=== PATIENT | female | born 1945 | race Caucasian/White ===

== ENCOUNTER 2018-02-16 12:19 | Observation (INO) ==
--- NOTE | 2018-02-16 12:51 | ED ---
HPI General Chief Complaint: Chest Pain Stated Complaint: Medical Time Seen by Provider: 02/16/18 12:32 Source: patient and family Mode of arrival: ambulatory Limitations: no limitations History of Present Illness HPI narrative: The patient is a 72-year-old female with breast cancer and right lumpectomy fibromyalgia and permanent pacemaker presenting with complaint of chest tightness and associated shortness of breath. She stated that she has been having several episodes in the past 2 days and today she was dusting at home and became very short of breath some lorazepam without any relief of her symptoms. MD complaint: Reports chest pain STEMI Alert: No Onset (ago): day(s) (2) Duration: intermittent Onset: during rest and during exertion Pain location: Reports epigastric Severity: moderate Severity scale (1-10): 6 Quality: Reports tightness Pain radiation: Reports none Relieving factors: nothing Exacerbating factors: exertion Context: Denies recent illness, recent surgery, recent immobilization, recent travel, trauma/injury, new medications and history of DVT/PE Associated symptoms: Reports dyspnea; Denies nausea, vomiting, diaphoresis, sense of impending doom, syncope, palpitations, fever, cough and leg swelling Treatments prior to arrival chest pain: Reports none Related Data Home Medications Medication Instructions Recorded Confirmed alprazolam 0.25 mg PO DAILY PRN 02/16/18 02/16/18 aspirin [Aspir-81] 81 mg PO DAILY 02/16/18 02/16/18 gabapentin 300 mg PO DAILY 02/16/18 02/16/18 metoprolol succinate 50 mg PO DAILY 02/16/18 02/16/18 nitrofurantoin macrocrystal 100 mg PO DAILY 02/16/18 02/16/18 Allergies Allergy/AdvReac Type Severity Reaction Status Date / Time lovastatin Allergy Severe "EXTREME Unverified 11/16/16 21:11 MUSCLE PAIN" diphenhydramine AdvReac Severe "MAKES ME Unverified 11/16/16 21:11 HYPER" STATINS Allergy Intermediate Muscle Pain Uncoded 02/16/18 12:25 Review of Systems ROS: all other systems reviewed are negative Respiratory Denies chest congestion, Denies cough, Denies dyspnea, Reports dyspnea on exertion, Denies stridor and Denies wheezing PMFSH History History Provided By: Patient and Family Member Medical History Medical History Breast cancer (Acute) Pacemaker (Acute) Social History Social History Smoking Status: Former smoker How Often Do You Have a Drink Containing Alcohol: Monthly or less Recent Travel in [facility] within the Last 8 Weeks: No Recent Out of Country Travel within the Last 8 Weeks: No Exam Narrative Exam Narrative: GENERAL: Alert and oriented in no distress. Well-nourished. SKIN: Focused skin assessment warm/dry. HEAD: Atraumatic. Normocephalic. EYES: Pupils equal and round. No scleral icterus. No injection or drainage. ENT: No nasal bleeding or discharge. Mucous membranes pink and moist. NECK: Trachea midline. No JVD. CARDIOVASCULAR: Regular rate and rhythm. No murmur appreciated. RESPIRATORY: No accessory muscle use. Clear to auscultation. Breath sounds equal bilaterally. GASTROINTESTINAL: Abdomen soft, non-tender, nondistended. Hepatic and splenic margins not palpable. MUSCULOSKELETAL: No obvious deformities. No clubbing. No cyanosis. No edema. NEUROLOGICAL: Awake and alert. No obvious cranial nerve deficits. Motor grossly within normal limits. Normal speech. PSYCHIATRIC: Appropriate mood and affect; insight and judgment normal. Course Reevaluation(s) Reevaluation #1: She stated that she felt better with the nitro. Her pain is returning at this time so we will going to repeat the dose. Time: 14:19 Initial Documented Vital Signs Temperature 97.5 F L 02/16/18 12:21 Pulse Rate 67 02/16/18 12:21 Respiratory Rate 18 02/16/18 12:21 Blood Pressure 175/71 H 02/16/18 12:21 Pulse Oximetry 96 02/16/18 12:21 Last Documented Vital Signs Temperature 97.5 F L 02/16/18 12:21 Pulse Rate 86 02/16/18 16:42 Respiratory Rate 17 02/16/18 16:42 Blood Pressure 142/71 H 02/16/18 16:42 Pulse Oximetry 100 02/16/18 16:42 Medical Decision Making MDM Narrative Medical decision making narrative: Initial cardiac workup has been unremarkable. Blood pressure improved with nitro. Hemodynamically stable alert and oriented. CT Angio was obtained due to a recent hip surgery and was negative for pulmonary emboli or intrathoracic process. initial cardiac work up unremarkable. Chest Pain did improve with Nitro SL. We will place the patient in the chest pain unit for serial cardiac enzymes. Medical Screen Exam Complete: Yes Emergency Medical Condition: Yes Lab Data Lab results reviewed: Yes I reviewed the patient's lab results. Result diagrams: 02/16/18 13:00 02/16/18 13:00 Lab Results 02/16/18 02/16/18 02/16/18 Range/Units 13:00 13:00 13:00 WBC 5.8 (4.0-11.0) th/mm3 RBC 4.86 (4.00-5.30) mil/mm3 Hgb 13.9 (11.6-15.3) gm/dL Hct 41.9 (35.0-46.0) % MCV 86.3 (80.0-100.0) fL MCH 28.7 (27.0-34.0) pg MCHC 33.3 (32.0-36.0) % RDW 13.7 (11.6-17.2) % Plt Count 217 (150-450) th/mm3 MPV 9.0 (7.0-11.0) fL Neut % (Auto) 60.6 (16.0-70.0) % Lymph % (Auto) 27.9 (9.0-44.0) % Ble[place] % (Auto) 7.7 (0.0-8.0) % Eos % (Auto) 3.2 (0.0-4.0) % Baso % (Auto) 0.6 (0.0-2.0) % Neut # (Auto) 3.5 (1.8-7.7) th/mm3 Lymph # (Auto) 1.6 (1.0-4.8) th/mm3 [place] # (Auto) 0.4 (0.0-0.9) th/mm3 Eos # (Auto) 0.2 (0.0-0.4) th/mm3 Baso # (Auto) 0.0 (0.0-0.2) th/mm3 WBC Differential . Differential Comment Auto diff final PT 9.7 L (9.8-11.6) sec INR 1.0 Ratio APTT 27.2 (23.4-31.7) sec Sodium (136-145) meq/L Potassium (3.5-5.1) meq/L Chloride (98-107) meq/L Carbon Dioxide (21.0-32.0) meq/L Anion Gap (5-15) meq/L BUN (7-18) mg/dL Creatinine (0.50-1.00) mg/dL Estimated GFR (>89) mL/min Random Glucose (74-106) mg/dL Calcium (8.5-10.1) mg/dL Total Bilirubin (0.2-1.0) mg/dL AST (15-37) U/L ALT (10-53) U/L Alkaline Phosphatase (45-117) U/L Total Creatine Kinase (26-192) U/L Troponin I (0.02-0.05) ng/mL B-Natriuretic Peptide 117 H (0-100) pg/mL Total Protein (6.4-8.2) g/dL Albumin (3.4-5.0) g/dL 02/16/18 Range/Units 13:00 WBC (4.0-11.0) th/mm3 RBC (4.00-5.30) mil/mm3 Hgb (11.6-15.3) gm/dL Hct (35.0-46.0) % MCV (80.0-100.0) fL MCH (27.0-34.0) pg MCHC (32.0-36.0) % RDW (11.6-17.2) % Plt Count (150-450) th/mm3 MPV (7.0-11.0) fL Neut % (Auto) (16.0-70.0) % Lymph % (Auto) (9.0-44.0) % [place] % (Auto) (0.0-8.0) % Eos % (Auto) (0.0-4.0) % Baso % (Auto) (0.0-2.0) % Neut # (Auto) (1.8-7.7) th/mm3 Lymph # (Auto) (1.0-4.8) th/mm3 [place] # (Auto) (0.0-0.9) th/mm3 Eos # (Auto) (0.0-0.4) th/mm3 Baso # (Auto) (0.0-0.2) th/mm3 WBC Differential Differential Comment PT (9.8-11.6) sec INR Ratio APTT (23.4-31.7) sec Sodium 144 (136-145) meq/L Potassium 3.9 (3.5-5.1) meq/L Chloride 111 H (98-107) meq/L Carbon Dioxide 25.8 (21.0-32.0) meq/L Anion Gap 7 (5-15) meq/L BUN 19 H (7-18) mg/dL Creatinine 0.82 (0.50-1.00) mg/dL Estimated GFR 68 L (>89) mL/min Random Glucose 89 (74-106) mg/dL Calcium 8.4 L (8.5-10.1) mg/dL Total Bilirubin 0.3 (0.2-1.0) mg/dL AST 15 (15-37) U/L ALT 15 (10-53) U/L Alkaline Phosphatase 75 (45-117) U/L Total Creatine Kinase 91 (26-192) U/L Troponin I Less than 0.02 L (0.02-0.05) ng/mL B-Natriuretic Peptide (0-100) pg/mL Total Protein 7.3 (6.4-8.2) g/dL Albumin 3.5 (3.4-5.0) g/dL Imaging Data Radiologist's impression: Chest CTA 02/16/18 12:46 CONCLUSION: No evidence of pulmonary embolus. Chest X-Ray 02/16/18 12:47 CONCLUSION: No acute cardiopulmonary disease. ECG Data EKG Prior to Arrival: No Attestation: I personally reviewed and interpreted this ECG as follows: Interpretation: Sinus rhythm 63 bpm normal axis nonspecific ST-T wave abnormalities. CO and QTc intervals within normal limits. No signs of acute ischemia. Discharge Plan Discharge Disposition Patient Disposition: 30 Still Patient Discharge Condition Condition: Good Discharge Details Diagnosis: Atypical chest pain Physicians Team ED Provider: Arturo Mccarty Primary Care Provider: Johnny Rico Attending Provider: Ezio Ro Status ED Status: Left Department Discharge Information Discharge Date/Time: 02/16/18 16:45
[2018-02-16 13:17] LABS: Baso % (Auto) 0.6 % (0.0-2.0); Eos # (Auto) 0.2 th/mm3 (0.0-0.4); Eos % (Auto) 3.2 % (0.0-4.0); Hematocrit 41.9 % (35.0-46.0); Hemoglobin 13.9 gm/dL (11.6-15.3); Lymph # (Auto) 1.6 th/mm3 (1.0-4.8); Lymph % (Auto) 27.9 % (9.0-44.0); Mean Corpuscular HGB Conc 33.3 % (32.0-36.0); Mean Corpuscular Hemoglobin 28.7 pg (27.0-34.0); Mean Corpuscular Volume 86.3 fL (80.0-100.0); Mono # (Auto) 0.4 th/mm3 (0.0-0.9); Mono % (Auto) 7.7 % (0.0-8.0); Neut # (Auto) 3.5 th/mm3 (1.8-7.7); Neut % (Auto) 60.6 % (16.0-70.0); Platelet Count 217 th/mm3 (150-450); Red Blood Count 4.86 mil/mm3 (4.00-5.30); Red Cell Distribution Width 13.7 % (11.6-17.2); White Blood Count 5.8 th/mm3 (4.0-11.0)
[2018-02-16 13:27] LABS: Activated Partial Thrombo Time 27.2 sec (23.4-31.7); Prothrombin Time 9.7 sec (9.8-11.6)
[2018-02-16 13:35] LABS: Alanine Aminotransferase 15 U/L (10-53); Albumin 3.5 g/dL (3.4-5.0); Anion Gap 7 meq/L (5-15); Aspartate Aminotransferase 15 U/L (15-37); Blood Urea Nitrogen 19 mg/dL (7-18); Calcium 8.4 mg/dL (8.5-10.1); Carbon Dioxide 25.8 meq/L (21.0-32.0); Chloride 111 meq/L (98-107); Glomerular Filtration Rate 68 mL/min (>89); Glucose,Random 89 mg/dL (74-106); Potassium 3.9 meq/L (3.5-5.1); Sodium 144 meq/L (136-145)
--- NOTE | 2018-02-16 13:38 | XR ---
EXAM DATE: 02/16/2018 1:31 PM EST AGE/SEX: 72 years / Female INDICATIONS: Chest pain and shortness of breath. CLINICAL DATA: This is the patient's initial encounter. Patient reports that signs and symptoms have been present for 1 day and indicates a pain score of 5/10. MEDICAL/SURGICAL HISTORY: Carcinoma, breast. Pacemaker. Lumpectomy. COMPARISON: [facility], CHEST SINGLE AP, 12/05/2012. . FINDINGS: A single AP view of the chest demonstrates the lungs to be symmetrically aerated without evidence of mass, infiltrate or effusion. The cardiomediastinal contours are unremarkable. Osseous structures a re intact. Left subclavian dual lead pacemaker has its tips in the right atrium and right ventricle CONCLUSION: No acute cardiopulmonary disease. Electronically signed by: Shlomo Umanzor MD 02/16/2018 1:37 PM EST
[2018-02-16 13:39] LABS: Alkaline Phosphatase 75 U/L (45-117); Creatine Kinase 91 U/L (26-192); Total Protein 7.3 g/dL (6.4-8.2)
--- NOTE | 2018-02-16 14:56 | CT ---
EXAM DATE: 02/16/2018 2:45 PM EST AGE/SEX: 72 years / Female INDICATIONS: Shortness of breath, and chest tightness. CLINICAL DATA: This is the patient's initial encounter. Patient reports that signs and symptoms have been present for 1 day and indicates a pain score of 7/10. MEDICAL/SURGICAL HISTORY: Carcinoma, breast. Pacemaker. RADIATION DOSE: 9.76 CTDI (mGy) COMPARISON: [facility], CTA CHEST W 3D RECON, 12/05/2012. . TECHNIQUE: Volumetric scanning was performed using a multi-row detector CT scanner during bolus infu adrianne of 75 ml Omnipaque 350 (iohexol) nonionic water-soluble contrast as a single exam dose. The karen a was post processed with a variety of visualization algorithms including full volume maximum intensi ty projection and sliding thin slab reformation. Using automated exposure control and adjustment of the mA and/or kV according to patient size, radiation dose was kept as low as reasonably achievable t o obtain optimal diagnostic quality images. DICOM format image data is available electronically for review and comparison. FINDINGS: Pulmonary Arteries: No filling defects in the pulmonary arteries to suggest pulmonary embolus. Lun mm nodular density in the left upper lobe unchanged from the prior study of 2012. Lungs are otherwise clear. Effusion: None. Mediastinum: No enlarged lymph nodes. Aortic diameter within normal limits. Moderate-sized hiatal he rnia. Other: The axilla is unremarkable. CONCLUSION: No evidence of pulmonary embolus. Electronically signed by: Erwin Randle MD 02/16/2018 2:55 PM EST
--- NOTE | 2018-02-16 16:51 | P.HPCA ---
History of Present Illness Primary Care Physician: Johnny Rico MD Chief Complaint: Chest pain History of Present Illness: This is a 72-year-old female with history of hypertension, hyperlipidemia, sick sinus syndrome with pacemaker, fibromyalgia that presents to ED with complaint of chest pressure. Patient states that she usually will have chest discomfort of some type III times a week and has had so for years. However the discomfort that began last evening is different. She states is a central chest pressure. Is been occurring at rest for the most part until this morning. It would last a few minutes. This morning it occurred when she went to walk fast to get her phone was ringing. At that time she became short of breath as well. Discomfort did not radiate. She had no nausea or diaphoresis. Currently feeling okay. States she has had cardiac workups before. Follows Dr. Long and states that she had a nuclear stress test within the last 2-3 months at their [facility] office. She states that she was told that it was okay. Medical history of hypertension, hyperlipidemia, sick sinus syndrome with pacemaker, fibromyalgia. Denies known CAD and diabetes. There is family history of CAD. She is a non-smoker. - Diagnosis (1) Chest pain (2) Hypertension (3) Hyperlipidemia (4) Sick sinus syndrome (5) Pacemaker (6) Fibromyalgia Review of Systems General: Patient denies fevers, chills, and recent travel. HEENT: Patient denies headache, sore throat, difficulty swallowing. Cardiovascular: Has the chest discomfort as mentioned above. Denies sensation of heart beating rapidly or irregularly. No syncope. Denies diaphoresis. Respiratory: She was short of breath. Denies inspirational chest discomfort. Denies coughing wheezing or hemoptysis. GI: Patient denies nausea, vomiting, diarrhea, abdominal pain, bloody stools. Musculoskeletal: Patient denies joint pain or edema. Denies calf pain or edema. Neurovascular: Patient denies numbness, tingling, weakness in extremities. Denies headache. Endocrine: Denies polyuria and polydipsia. Hematologic: Denies easy bruising. Skin: Denies rash or itching. PMFSH - History History Provided By: Patient, Family Member - Medical History Medical History: Medical History (Last Reviewed 02/16/18 @ 12:51 by Arturo Mccarty DO) Breast cancer Pacemaker - Tobacco History Smoking Status: Former smoker - Alcohol History How Often Do You Have a Drink Containing Alcohol: Monthly or less - Travel History Recent Travel in the [place] Within the Last 8 Weeks: No Recent Travel Out of the Country Within the Last 8 Weeks: No - Immunization History Tetanus Immunization: <5 Years Medications and Allergies Active Medications: Active Medications Nitroglycerin (Nitrostat Sl) 0.4 mg SL Q5M PRN PRN Reason: CHEST PAIN Sodium Chloride (Ns Flush) 2 ml IV.FLUSH UNSCH PRN PRN Reason: FLUSH AFTER USING IV ACCESS Sodium Chloride (Ns Flush) 2 ml IV.FLUSH BID NIC Sodium Chloride (Ns Flush) 2 ml IV.FLUSH PRN PRN PRN Reason: FLUSH AFTER USING IV ACCESS Allergies Allergy/AdvReac Type Severity Reaction Status Date / Time lovastatin Allergy Severe "EXTREME Unverified 11/16/16 21:11 MUSCLE PAIN" diphenhydramine AdvReac Severe "MAKES ME Unverified 11/16/16 21:11 HYPER" STATINS Allergy Intermediate Muscle Pain Uncoded 02/16/18 12:25 Exam Vital signs: Vital Signs 02/16/18 12:21 02/16/18 12:47 02/16/18 12:48 Temperature 97.5 F L Pulse Rate 67 63 Respiratory Rate 18 17 Blood Pressure 175/71 H 172/81 H Pulse Oximetry 96 100 100 02/16/18 14:58 Temperature Pulse Rate 61 Respiratory Rate 17 Blood Pressure 153/73 H Pulse Oximetry 100 Intake & Output 02/15/18 02/16/18 02/16/18 18:59 06:59 18:59 Weight 74.843 kg Narrative: GENERAL: This is a well-nourished, well-developed patient, in no apparent distress. Patient speaks in clear complete sentences. Patient is pleasant. HEENT: Head is atraumatic and normocephalic. Neck is supple without lymphadenopathy and trachea is midline. No JVD or carotid bruits. CARDIOVASCULAR: Regular rate and rhythm without murmurs, gallops, or rubs. RESPIRATORY: Clear to auscultation. Breath sounds equal bilaterally. No wheezes , rales, or rhonchi. Chest wall is tender reproducing the discomfort that she has been getting in the past but not the discomfort that has been intermittent since last evening. No use of accessory muscles. GASTROINTESTINAL: Abdomen is nontender, nondistended. Abdomen soft. No obvious pulsatile mass or bruit. No CVA tenderness. Strong femoral pulses bilaterally. Normal bowel sounds in all quadrants. MUSCULOSKELETAL: Patient is moving upper and lower extremities freely. No calf tenderness or edema, no Homans sign. Strong pulses in upper and lower extremities. NEUROLOGICAL: Patient is alert and oriented. Cranial nerves 2-12 are grossly intact. No focal deficits and speech is clear. SKIN: No rash and turgor is normal. Results 02/16/18 13:00 02/16/18 13:00 Cardiac Enzymes 02/16/18 02/16/18 Range/Units 13:00 13:00 AST 15 (15-37) U/L Troponin I Less than 0.02 L (0.02-0.05) ng/mL B-Natriuretic Peptide 117 H (0-100) pg/mL Coagulation 02/16/18 02/16/18 Range/Units 13:00 13:00 PT 9.7 L (9.8-11.6) sec APTT 27.2 (23.4-31.7) sec B-Natriuretic Peptide 117 H (0-100) pg/mL CBC 02/16/18 Range/Units 13:00 WBC 5.8 (4.0-11.0) th/mm3 RBC 4.86 (4.00-5.30) mil/mm3 Hgb 13.9 (11.6-15.3) gm/dL Hct 41.9 (35.0-46.0) % Plt Count 217 (150-450) th/mm3 Neut # (Auto) 3.5 (1.8-7.7) th/mm3 Lymph # (Auto) 1.6 (1.0-4.8) th/mm3 [place] # (Auto) 0.4 (0.0-0.9) th/mm3 Eos # (Auto) 0.2 (0.0-0.4) th/mm3 Baso # (Auto) 0.0 (0.0-0.2) th/mm3 Comprehensive Metabolic Panel 02/16/18 Range/Units 13:00 Sodium 144 (136-145) meq/L Potassium 3.9 (3.5-5.1) meq/L Chloride 111 H (98-107) meq/L Carbon Dioxide 25.8 (21.0-32.0) meq/L BUN 19 H (7-18) mg/dL Creatinine 0.82 (0.50-1.00) mg/dL Calcium 8.4 L (8.5-10.1) mg/dL AST 15 (15-37) U/L ALT 15 (10-53) U/L Alkaline Phosphatase 75 (45-117) U/L Total Protein 7.3 (6.4-8.2) g/dL Albumin 3.5 (3.4-5.0) g/dL Intake and Output 02/16/18 02/16/18 02/16/18 06:59 14:59 22:59 Other: Weight 74.843 kg Patient Weight 02/17/18 06:59 Weight 74.843 kg - Imaging and Cardiology Imaging: Impressions Chest CTA 02/16/18 12:46 CONCLUSION: No evidence of pulmonary embolus. Chest X-Ray 02/16/18 12:47 CONCLUSION: No acute cardiopulmonary disease. EKG interpretations - EKG EKG shows: sinus rhythm (Initial EKG is sinus rhythm without significant ST segment depressions or elevations.) Caprini VTE Risk Assessment Caprini VTE Risk Assessment: Moderate/High Risk (score >= 2) Caprini Risk Assessment Model: Point Value = 1 Point Value = 2 Point Value = 3 Point Value = 5 Age 41-60 Minor surgery BMI > 25 kg/m2 Swollen legs Varicose veins or History of unexplained or recurrent spontaneous Oral contraceptives or hormone replacement Sepsis (< 1 month) Serious lung disease, including pneumonia (< 1 month) Abnormal pulmonary function Acute myocardial infarction Congestive heart failure (< 1 month) History of inflammatory bowel disease Medical patient at bed rest Age 61-74 Arthroscopic surgery Major open surgery (> 45 min) Laparoscopic surgery (> 45 min) Malignancy Confined to bed (> 72 hours) Immobilizing plaster cast Central venous access Age >= 75 History of VTE Family history of VTE Factor V Leiden Prothrombin [id number] Lupus anticoagulant Anticardiolipin antibodies Elevated serum homocysteine Heparin-induced thrombocytopenia Other congenital or acquired thrombophilia Stroke (< 1 month) Elective arthroplasty Hip, pelvis, or leg fracture Acute spinal cord injury (< 1 month) Prophylaxis Regimen: Total Risk Factor Score Risk Level Prophylaxis Regimen 0-1 Low Early ambulation 2 Moderate Order ONE of the following: *Sequential Compression Device (SCD) *Heparin 5000 units SQ BID 3-4 Higher Order ONE of the following medications: *Heparin 5000 units SQ TID *Enoxaparin/Lovenox 40 mg SQ daily (WT < 150 kg, CrCl > 30 mL/min) *Enoxaparin/Lovenox 30 mg SQ daily (WT < 150 kg, CrCl > 10-29 mL/min) *Enoxaparin/Lovenox 30 mg SQ BID (WT < 150 kg, CrCl > 30 mL/min) AND/OR *Sequential Compression Device (SCD) 5 or more Highest Order ONE of the following medications: *Heparin 5000 units SQ TID (Preferred with Epidurals) *Enoxaparin/Lovenox 40 mg SQ daily (WT < 150 kg, CrCl > 30 mL/min) *Enoxaparin/Lovenox 30 mg SQ daily (WT < 150 kg, CrCl > 10-29 mL/min) *Enoxaparin/Lovenox 30 mg SQ BID (WT < 150 kg, CrCl > 30 mL/min) AND *Sequential Compression Device (SCD) Assessment and Plan - Assessment (1) Chest pain Code(s): R07.9 - Chest pain, unspecified Status: Acute (2) Hypertension Code(s): I10 - Essential (primary) hypertension Status: Acute (3) Hyperlipidemia Code(s): E78.5 - Hyperlipidemia, unspecified Status: Acute (4) Sick sinus syndrome Code(s): I49.5 - Sick sinus syndrome Status: Acute (5) Pacemaker Code(s): Z95.0 - Presence of cardiac pacemaker Status: Acute (6) Fibromyalgia Code(s): M79.7 - Fibromyalgia Status: Acute - Plan * Chest pain: Patient will continue to have serial cardiac enzymes and EKGs for ruling out purposes. She will be seen by Dr. Ro of cardiology in the chest pain center in the morning. I discussed this patient with her manager of employee relations and is out of the office to confirm stress testing but believes she probably did have a recently and was okay. Suggest letting her rule out and reevaluate patient in the morning and discussed with him in the morning. Further plan pending evaluation by Dr. Ro in the morning and conversation that they will then have with Dr. Long. * Hypertension: Continue medication. * Hyperlipidemia: Continue medication. * History of sick sinus syndrome: Patient has pacemaker. Continue follow-up with her manager of employee relations. * Fibromyalgia: Continue medication. Patient is stable at this time. She is agreeable to this plan.
[2018-02-16] MEDS ORDERED: Acetaminophen 500 MG Tablet PO PRN (16:52)
[2018-02-16] MEDS ORDERED: Non-Formulary Drug (Nitrofurantoin Macrocrystal [Nitrofurantoin Macrocrystal] 100 MG) PO SCH (18:00)
[2018-02-16 18:17] LABS: Creatine Kinase 79 U/L (26-192)
[2018-02-16] MEDS ORDERED: ALPRAZolam 0.25 MG Tablet PO ONE (21:00)
[2018-02-16 21:20] LABS: Creatine Kinase 74 U/L (26-192)
[2018-02-17 08:20] VITALS: BP 134/67; PULSE 64; RESP 20; TEMP 98.3; O2SAT 95
--- NOTE | 2018-02-17 08:33 | P.PNCA ---
Medications and Allergies Active Medications: Active Medications Acetaminophen (Tylenol) 500 mg PO Q6H PRN PRN Reason: pain scale 1-5 Hydrocodone Bitart/Acetaminophen ([place] 7.5/325) 1 tab PO Q6H PRN PRN Reason: pain scale 6-10 Aspirin (Aspirin) 325 mg PO DAILY [facility] Clonidine HCl (Catapres) 0.1 mg PO Q6H PRN PRN Reason: SBP >165 OR DBP > 110 Gabapentin (Neurontin) 300 mg PO DAILY [facility] Metoprolol Succinate (Toprol Xl) 50 mg PO DAILY [facility] Last Admin: 02/16/18 18:41 Dose: 50 mg Nitrofurantoin Macrocrystals (Macrobid) 100 mg PO DAILY [facility] Nitroglycerin (Nitrostat Sl) 0.4 mg SL Q5M PRN PRN Reason: CHEST PAIN Ondansetron HCl (Zofran Inj) 4 mg IV.PUSH Q6H PRN PRN Reason: NAUSEA OR VOMITING Sodium Chloride (Ns Flush) 2 ml IV.FLUSH UNSCH PRN PRN Reason: FLUSH AFTER USING IV ACCESS Sodium Chloride (Ns Flush) 2 ml IV.FLUSH BID [facility] Last Admin: 02/16/18 21:03 Dose: 2 ml Sodium Chloride (Ns Flush) 2 ml IV.FLUSH PRN PRN PRN Reason: FLUSH AFTER USING IV ACCESS Allergies Allergy/AdvReac Type Severity Reaction Status Date / Time lovastatin Allergy Severe "EXTREME Verified 02/16/18 23:59 MUSCLE PAIN" diphenhydramine AdvReac Severe "MAKES ME Verified 02/16/18 23:59 HYPER" STATINS Allergy Severe Muscle Pain Uncoded 02/16/18 23:59 Home Medications Medication Instructions Recorded Confirmed Type alprazolam 0.25 mg PO DAILY PRN 02/16/18 02/16/18 History aspirin [Aspir-81] 81 mg PO DAILY 02/16/18 02/16/18 History gabapentin 300 mg PO DAILY 02/16/18 02/16/18 History metoprolol succinate 50 mg PO DAILY 02/16/18 02/16/18 History nitrofurantoin macrocrystal 100 mg PO DAILY 02/16/18 02/16/18 History Physical Exam Vital signs: Vital Signs 02/16/18 12:21 02/16/18 12:47 02/16/18 12:48 Temperature 97.5 F L Pulse Rate 67 63 Respiratory Rate 18 17 Blood Pressure 175/71 H 172/81 H Pulse Oximetry 96 100 100 02/16/18 14:58 02/16/18 16:42 02/16/18 17:55 Temperature 97.7 F Pulse Rate 61 86 60 Respiratory Rate 17 17 16 Blood Pressure 153/73 H 142/71 H 151/75 H Pulse Oximetry 100 100 95 02/16/18 19:36 02/16/18 20:00 02/16/18 23:57 Temperature 98.4 F 97.4 F L Pulse Rate 68 71 62 Respiratory Rate 17 14 Blood Pressure 148/72 H 136/74 Pulse Oximetry 96 95 02/17/18 04:00 02/17/18 08:18 Temperature 98.1 F 98.3 F Pulse Rate 61 64 Respiratory Rate 17 20 Blood Pressure 151/74 H 134/67 Pulse Oximetry 93 L 95 Intake & Output 02/16/18 02/17/18 02/17/18 18:59 06:59 18:59 Intake Total 0 / 0 Balance 0 / 0 Weight 74.843 kg Intake: Oral 0 / 0 Other: # Voids 3 Results 02/16/18 13:00 02/16/18 13:00 Cardiac Enzymes 02/16/18 02/16/18 02/16/18 Range/Units 13:00 13:00 16:30 AST 15 (15-37) U/L Troponin I Less than 0.02 L Less than 0.02 L (0.02-0.05) ng/mL B-Natriuretic Peptide 117 H (0-100) pg/mL 02/16/18 Range/Units 19:45 AST (15-37) U/L Troponin I Less than 0.02 L (0.02-0.05) ng/mL B-Natriuretic Peptide (0-100) pg/mL Coagulation 02/16/18 02/16/18 Range/Units 13:00 13:00 PT 9.7 L (9.8-11.6) sec APTT 27.2 (23.4-31.7) sec B-Natriuretic Peptide 117 H (0-100) pg/mL CBC 02/16/18 Range/Units 13:00 WBC 5.8 (4.0-11.0) th/mm3 RBC 4.86 (4.00-5.30) mil/mm3 Hgb 13.9 (11.6-15.3) gm/dL Hct 41.9 (35.0-46.0) % Plt Count 217 (150-450) th/mm3 Neut # (Auto) 3.5 (1.8-7.7) th/mm3 Lymph # (Auto) 1.6 (1.0-4.8) th/mm3 [place] # (Auto) 0.4 (0.0-0.9) th/mm3 Eos # (Auto) 0.2 (0.0-0.4) th/mm3 Baso # (Auto) 0.0 (0.0-0.2) th/mm3 Comprehensive Metabolic Panel 02/16/18 Range/Units 13:00 Sodium 144 (136-145) meq/L Potassium 3.9 (3.5-5.1) meq/L Chloride 111 H (98-107) meq/L Carbon Dioxide 25.8 (21.0-32.0) meq/L BUN 19 H (7-18) mg/dL Creatinine 0.82 (0.50-1.00) mg/dL Calcium 8.4 L (8.5-10.1) mg/dL AST 15 (15-37) U/L ALT 15 (10-53) U/L Alkaline Phosphatase 75 (45-117) U/L Total Protein 7.3 (6.4-8.2) g/dL Albumin 3.5 (3.4-5.0) g/dL Intake and Output 02/16/18 02/17/18 02/17/18 22:59 06:59 14:59 Intake Total 0 / 0 Balance 0 / 0 Intake: Oral 0 / 0 Other: # Voids 3 - Imaging and Cardiology Imaging: Impressions Chest CTA 02/16/18 12:46 CONCLUSION: No evidence of pulmonary embolus. Chest X-Ray 02/16/18 12:47 CONCLUSION: No acute cardiopulmonary disease. Assessment and Plan - Assessment (1) Chest pain Code(s): R07.9 - Chest pain, unspecified Status: Acute (2) Hypertension Code(s): I10 - Essential (primary) hypertension Status: Acute (3) Hyperlipidemia Code(s): E78.5 - Hyperlipidemia, unspecified Status: Acute (4) Sick sinus syndrome Code(s): I49.5 - Sick sinus syndrome Status: Acute (5) Pacemaker Code(s): Z95.0 - Presence of cardiac pacemaker Status: Acute (6) Fibromyalgia Code(s): M79.7 - Fibromyalgia Status: Acute - Plan * Chest pain: Patient will continue to have serial cardiac enzymes and EKGs for ruling out purposes. She will be seen by Dr. Ro of cardiology in the chest pain center in the morning. I discussed this patient with her senior editor and is out of the office to confirm stress testing but believes she probably did have a recently and was okay. Suggest letting her rule out and reevaluate patient in the morning and discussed with him in the morning. Further plan pending evaluation by Dr. Ro in the morning and conversation that they will then have with Dr. Long. * Hypertension: Continue medication. * Hyperlipidemia: Continue medication. * History of sick sinus syndrome: Patient has pacemaker. Continue follow-up with her senior editor. * Fibromyalgia: Continue medication. Patient is stable at this time. She is agreeable to this plan.
[2018-02-17] MEDS ORDERED: Nitrofurantoin Monohydrate-Macrocrystal 100 MG Capsule PO SCH (09:00)
[2018-02-17] MEDS ORDERED: Gabapentin 300 MG Capsule PO SCH (09:00)
[2018-02-17] MEDS ORDERED: Aspirin 325 MG Tablet PO SCH (09:00)
--- NOTE | 2018-02-17 09:07 | P.PNCA ---
Subjective Interval history: 72-year-old lady evaluated last night by the physician core oven tender. Discussion was then carried out with Dr. Medina who follows her on a regular basis. The decision was made after mutual consultation to continue to rule out by chest pain center protocol and if she rules out to watch her overnight to determine if symptoms worsen or improve. The patient has ruled out for ACS with negative enzymes and EKGs. This morning she continues with some vague diffuse discomfort that she has some difficulty describing but in general is somewhat improved from yesterday and certainly no worse. Per discussion with Dr. Medina and after thorough discussion with the patient she will be discharged from the hospital to arrange further follow-up on an outpatient basis with Dr. Medina having ruled out for ACS. Vital signs remained stable and EKG has shown no change in the physical exam is unchanged. Documentation as recorded is appropriate. Medications and Allergies Active Medications: Active Medications Acetaminophen (Tylenol) 500 mg PO Q6H PRN PRN Reason: pain scale 1-5 Hydrocodone Bitart/Acetaminophen ([place] 7.5/325) 1 tab PO Q6H PRN PRN Reason: pain scale 6-10 Aspirin (Aspirin) 325 mg PO DAILY [facility] Last Admin: 02/17/18 08:49 Dose: 325 mg Clonidine HCl (Catapres) 0.1 mg PO Q6H PRN PRN Reason: SBP >165 OR DBP > 110 Gabapentin (Neurontin) 300 mg PO DAILY [facility] Last Admin: 02/17/18 08:49 Dose: 300 mg Metoprolol Succinate (Toprol Xl) 50 mg PO DAILY [facility] Last Admin: 02/17/18 08:49 Dose: 50 mg Nitrofurantoin Macrocrystals (Macrobid) 100 mg PO DAILY [facility] Last Admin: 02/17/18 08:49 Dose: 100 mg Nitroglycerin (Nitrostat Sl) 0.4 mg SL Q5M PRN PRN Reason: CHEST PAIN Ondansetron HCl (Zofran Inj) 4 mg IV.PUSH Q6H PRN PRN Reason: NAUSEA OR VOMITING Sodium Chloride (Ns Flush) 2 ml IV.FLUSH UNSCH PRN PRN Reason: FLUSH AFTER USING IV ACCESS Sodium Chloride (Ns Flush) 2 ml IV.FLUSH BID [facility] Last Admin: 02/17/18 08:50 Dose: 2 ml Sodium Chloride (Ns Flush) 2 ml IV.FLUSH PRN PRN PRN Reason: FLUSH AFTER USING IV ACCESS Allergies Allergy/AdvReac Type Severity Reaction Status Date / Time lovastatin Allergy Severe "EXTREME Verified 02/16/18 23:59 MUSCLE PAIN" diphenhydramine AdvReac Severe "MAKES ME Verified 02/16/18 23:59 HYPER" STATINS Allergy Severe Muscle Pain Uncoded 02/16/18 23:59 Home Medications Medication Instructions Recorded Confirmed Type alprazolam 0.25 mg PO DAILY PRN 02/16/18 02/16/18 History aspirin [Aspir-81] 81 mg PO DAILY 02/16/18 02/16/18 History gabapentin 300 mg PO DAILY 02/16/18 02/16/18 History metoprolol succinate 50 mg PO DAILY 02/16/18 02/16/18 History nitrofurantoin macrocrystal 100 mg PO DAILY 02/16/18 02/16/18 History Physical Exam Vital signs: Vital Signs 02/16/18 12:21 02/16/18 12:47 02/16/18 12:48 Temperature 97.5 F L Pulse Rate 67 63 Respiratory Rate 18 17 Blood Pressure 175/71 H 172/81 H Pulse Oximetry 96 100 100 02/16/18 14:58 02/16/18 16:42 02/16/18 17:55 Temperature 97.7 F Pulse Rate 61 86 60 Respiratory Rate 17 17 16 Blood Pressure 153/73 H 142/71 H 151/75 H Pulse Oximetry 100 100 95 02/16/18 19:36 02/16/18 20:00 02/16/18 23:57 Temperature 98.4 F 97.4 F L Pulse Rate 68 71 62 Respiratory Rate 17 14 Blood Pressure 148/72 H 136/74 Pulse Oximetry 96 95 02/17/18 04:00 02/17/18 08:18 Temperature 98.1 F 98.3 F Pulse Rate 61 64 Respiratory Rate 17 20 Blood Pressure 151/74 H 134/67 Pulse Oximetry 93 L 95 Intake & Output 02/16/18 02/17/18 02/17/18 18:59 06:59 18:59 Intake Total 0 / 0 Balance 0 / 0 Weight 74.843 kg Intake: Oral 0 / 0 Other: # Voids 3 Results 02/16/18 13:00 02/16/18 13:00 Cardiac Enzymes 02/16/18 02/16/18 02/16/18 Range/Units 13:00 13:00 16:30 AST 15 (15-37) U/L Troponin I Less than 0.02 L Less than 0.02 L (0.02-0.05) ng/mL B-Natriuretic Peptide 117 H (0-100) pg/mL 02/16/18 Range/Units 19:45 AST (15-37) U/L Troponin I Less than 0.02 L (0.02-0.05) ng/mL B-Natriuretic Peptide (0-100) pg/mL Coagulation 02/16/18 02/16/18 Range/Units 13:00 13:00 PT 9.7 L (9.8-11.6) sec APTT 27.2 (23.4-31.7) sec B-Natriuretic Peptide 117 H (0-100) pg/mL CBC 02/16/18 Range/Units 13:00 WBC 5.8 (4.0-11.0) th/mm3 RBC 4.86 (4.00-5.30) mil/mm3 Hgb 13.9 (11.6-15.3) gm/dL Hct 41.9 (35.0-46.0) % Plt Count 217 (150-450) th/mm3 Neut # (Auto) 3.5 (1.8-7.7) th/mm3 Lymph # (Auto) 1.6 (1.0-4.8) th/mm3 [place] # (Auto) 0.4 (0.0-0.9) th/mm3 Eos # (Auto) 0.2 (0.0-0.4) th/mm3 Baso # (Auto) 0.0 (0.0-0.2) th/mm3 Comprehensive Metabolic Panel 02/16/18 Range/Units 13:00 Sodium 144 (136-145) meq/L Potassium 3.9 (3.5-5.1) meq/L Chloride 111 H (98-107) meq/L Carbon Dioxide 25.8 (21.0-32.0) meq/L BUN 19 H (7-18) mg/dL Creatinine 0.82 (0.50-1.00) mg/dL Calcium 8.4 L (8.5-10.1) mg/dL AST 15 (15-37) U/L ALT 15 (10-53) U/L Alkaline Phosphatase 75 (45-117) U/L Total Protein 7.3 (6.4-8.2) g/dL Albumin 3.5 (3.4-5.0) g/dL Intake and Output 02/16/18 02/17/18 02/17/18 22:59 06:59 14:59 Intake Total 0 / 0 Balance 0 / 0 Intake: Oral 0 / 0 Other: # Voids 3 - Imaging and Cardiology Imaging: Impressions Chest CTA 02/16/18 12:46 CONCLUSION: No evidence of pulmonary embolus. Chest X-Ray 02/16/18 12:47 CONCLUSION: No acute cardiopulmonary disease. Assessment and Plan - Assessment (1) Chest pain Code(s): R07.9 - Chest pain, unspecified Status: Acute Plan: Patient has ruled out for ACS and is currently stable. She will be discharged to follow-up with Dr. Allred at our as discussed on the phone. (2) Hypertension Code(s): I10 - Essential (primary) hypertension Status: Acute (3) Hyperlipidemia Code(s): E78.5 - Hyperlipidemia, unspecified Status: Acute (4) Sick sinus syndrome Code(s): I49.5 - Sick sinus syndrome Status: Acute (5) Pacemaker Code(s): Z95.0 - Presence of cardiac pacemaker Status: Acute (6) Fibromyalgia Code(s): M79.7 - Fibromyalgia Status: Acute - Plan * Chest pain: Patient will continue to have serial cardiac enzymes and EKGs for ruling out purposes. She will be seen by Dr. Ro of cardiology in the chest pain center in the morning. I discussed this patient with her profile saw setup operator and is out of the office to confirm stress testing but believes she probably did have a recently and was okay. Suggest letting her rule out and reevaluate patient in the morning and discussed with him in the morning. Further plan pending evaluation by Dr. Ro in the morning and conversation that they will then have with Dr. Long. * Hypertension: Continue medication. * Hyperlipidemia: Continue medication. * History of sick sinus syndrome: Patient has pacemaker. Continue follow-up with her profile saw setup operator. * Fibromyalgia: Continue medication. Patient is stable at this time. She is agreeable to this plan.
--- NOTE | 2018-02-17 11:41 | ECG ---
Date Performed: 02/16/2018 Time Performed: 19:57:13 PTAGE: 72 years EKG: Sinus rhythm INFERIOR MYOCARDIAL INFARCTION ABNORMAL ECG Paced rhythm is not noted but otherwise no change PREVIOUS TRACING : 02/16/2018 16.33 DOCTOR: Ezio Ro Interpretating Date/Time 02/17/2018 11:40:58
--- NOTE | 2018-02-17 11:42 | ECG ---
Date Performed: 02/16/2018 Time Performed: 16:33:12 PTAGE: 72 years EKG: ELECTRONIC ATRIAL PACEMAKER MINIMAL VOLTAGE CRITERIA FOR LVH, CONSIDER NORMAL VARIANT ABNOR MAL RHYTHM ECG PREVIOUS TRACING : 02/16/2018 12.37 DOCTOR: Ezio Ro Interpretating Date/Time 02/17/2018 11:42:05
--- NOTE | 2018-02-17 11:42 | ECG ---
Date Performed: 02/16/2018 Time Performed: 12:37:13 PTAGE: 72 years EKG: Sinus rhythm NORMAL ECG Atrial paced rhythm NO PREVIOUS TRACING DOCTOR: Ezio Ro Interpretating Date/Time 02/17/2018 11:42:31
== END 2018-02-17 10:44 | disposition home or self-care (01) ==
LOC: NEPC 12:19 → NEDA 12:19 → NEPGCP 16:43
PROVIDERS: ADMIT Internal Medicine Interventional Cardiology; ATTEND Internal Medicine Interventional Cardiology
DX: R07.89 Other chest pain; M79.7 Fibromyalgia; Z85.3 Personal history of malignant neoplasm of breast; Z95.0 Presence of cardiac pacemaker; E78.5 Hyperlipidemia, unspecified; I49.5 Sick sinus syndrome; Z87.891 Personal history of nicotine dependence; Z82.49 Family history of ischemic heart disease and other diseases of the circulatory system; R06.02 Shortness of breath; I10 Essential (primary) hypertension